=== PATIENT | male | born 1975 | race Caucasian/White ===

== ENCOUNTER 2022-07-19 15:38 | Inpatient (IN) | payer OTHER ==
[2022-07-19 17:29] VITALS: BMI 23.3
[2022-07-19] MEDS ORDERED: IBUPROFEN 400 MG TABLET (FP) PO PRN (18:03)
[2022-07-19] MEDS ORDERED: DICYCLOMINE HCL 10 MG CAPSULE PO PRN (18:03)
[2022-07-19] MEDS ORDERED: IBUPROFEN 600 MG TABLET (FP) PO PRN (18:03)
[2022-07-19] MEDS ORDERED: P-EPHED 60MG/TRIPROLIDI 2.5MG TABLET PO PRN (18:03)
[2022-07-19] MEDS ORDERED: BISMUTH SUBSALICYLATE 524 MG/30 ML PO PRN (18:03)
[2022-07-19] MEDS ORDERED: MAGNESIUM HYDROX 2400MG/30ML ORAL SUSPENSION 30 ML CUP PO PRN (18:03)
[2022-07-19] MEDS ORDERED: MAG HYDROX/AL HYDROX/SIMETH 30 ML UNIT-DOSE CUP PO PRN (18:03)
[2022-07-19] MEDS ORDERED: LOPERAMIDE HCL 2 MG CAPSULE PO PRN (18:03)
[2022-07-19] MEDS ORDERED: guaiFENesin 200 MG/10 ML 10 ML UNIT-DOSE CUPS PO PRN (18:03)
[2022-07-19] MEDS ORDERED: MAGNESIUM CITRATE 300 ML BOTTLE PO PRN (18:03)
[2022-07-19] MEDS ORDERED: BENZOCAINE/MENTHOL (CHLORASEPTIC ) LOZENGE MM PRN (18:03)
[2022-07-19] MEDS ORDERED: NALOXONE HCL 0.4 MG/ML VIAL IM PRN (18:03)
[2022-07-19] MEDS ORDERED: NALOXONE HCL (KLOXXADO) 8 MG SPRAY NS PRN (18:03)
[2022-07-19] MEDS ORDERED: ACETAMINOPHEN 325 MG TABLET (FP) PO PRN ×2 (18:03)
[2022-07-19] MEDS ORDERED: MELATONIN 5 MG TABLETS PO PRN (18:03)
[2022-07-19] MEDS ORDERED: NICOTINE POLACRILEX 2 MG GUM BUC PRN (18:03)
[2022-07-19] MEDS ORDERED: ONDANSETRON *ODT* 4 MG TABLET SL PRN (18:03)
[2022-07-19] MEDS ORDERED: cloNIDine HCL 0.1 MG TABLET PO PRN (18:40)
[2022-07-19] MEDS ORDERED: methaDONE HCL 10 MG TABLET (FOR DETOX USE ONLY) PO ONE (19:20)
[2022-07-19] MEDS ORDERED: THIAMINE HCL 100 MG TABLET (FP) PO SCH (22:00)
[2022-07-19] MEDS: hydrOXYzine PAMOATE 25 MG CAPSULE (FP) PO PRN (22:30)
[2022-07-19] MEDS: METHOCARBAMOL 500 MG TABLET PO PRN (22:30)
[2022-07-20] MEDS: METHOCARBAMOL 500 MG TABLET PO PRN (06:27)
[2022-07-20 09:35] VITALS: BP 122/71; PULSE 78; RESP 16; TEMP 97.3
[2022-07-20] MEDS ORDERED: PRENATAL VITAMINS W/ FOLIC ACID TABLET (FP) PO SCH (10:00)
[2022-07-20] MEDS ORDERED: NICOTINE 14 MG/24 HOURS TOPICAL PATCH TD SCH (10:00)
[2022-07-20] MEDS: hydrOXYzine PAMOATE 25 MG CAPSULE (FP) PO PRN (10:38)
[2022-07-20] MEDS ORDERED: FLU VACC QS2022-23(6MOS UP)/PF 60 MCG/0.5 ML SYRINGE IM ONE (12:00)
[2022-07-20 13:45] LABS: HEMATOCRIT 45.4 % (35.4-49); HEMOGLOBIN 14.8 GM/dL (11.7-16.9); MCHC 32.6 g/dl (32.0-35.9); MEAN CELL VOLUME 98.1 fl (80-96); MEAN PLT VOLUME 8.1 fl (7.5-11.1); PLATELET COUNT 295 10^3/uL (134-434); RBC 4.63 M/mm3 (4.00-5.60); WHITE BLOOD COUNT 6.1 K/mm3 (4.0-10.0)
[2022-07-20 13:58] LABS: ALBUMIN 3.7 g/dl (3.4-5.0); BLOOD UREA NITROGEN 25.3 mg/dL (7-18); CALCIUM 9.2 mg/dL (8.5-10.1)
[2022-07-20 14:03] LABS: BILIRUBIN,TOTAL 0.5 mg/dL (0.2-1); TOT PROT 7.4 g/dl (6.4-8.2)
[2022-07-20 14:44] LABS: HIV INTERPRETATION NEGATIVE (NEGATIVE)
[2022-07-21] MEDS ORDERED: methaDONE HCL 10 MG TABLET (FOR DETOX USE ONLY) PO ONE (10:00)
[2022-07-23] MEDS ORDERED: methaDONE HCL 10 MG TABLET (FOR DETOX USE ONLY) PO ONE (10:00)
== END 2022-07-20 11:25 | disposition left against medical advice (07) | DRG 770 ==
LOC: YASAS 15:38 → Y6N 18:16
PROVIDERS: ADMIT Allergy & Immunology; ATTEND Surgery
PROC: HZ2ZZZZ Detoxification Services for Substance Abuse Treatment (ICD-10-PCS; principal; 2022-07-19)
DX: F11.23 Opioid dependence with withdrawal (principal); F12.20 Cannabis dependence, uncomplicated; F17.210 Nicotine dependence, cigarettes, uncomplicated; F43.10 Post-traumatic stress disorder, unspecified; F90.9 Attention-deficit hyperactivity disorder, unspecified type; M54.50 Low back pain, unspecified; G89.29 Other chronic pain; Z59.00 Homelessness unspecified
CPT/HCPCS: 36415; 80053; 85027; 86780; 87389; C9803-CS; U0003; U0005

== ENCOUNTER 2023-08-17 22:33 | Emergency (ER) | payer SELFPAY ==
[2023-08-17 22:41] VITALS: RESP 18; TEMP 97.8; BMI 26.1
[2023-08-17] MEDS ORDERED: LACTATED RINGERS SOLUTION 1,000 ML/1,000 ML INFUS.BAG IV ONE (23:31)
[2023-08-17] MEDS ORDERED: ONDANSETRON 4 MG/2 ML VIAL IVPUSH ONE (23:32)
[2023-08-17] MEDS ORDERED: FAMOTIDINE 20 MG/50 ML IVPB 20 MG/50 ML MG IVPB ONE ×2 (23:32→23:36)
[2023-08-17] MEDS ORDERED: ACETAMINOPHEN 1000 MG/100 ML BAG IVPB ONE (23:33)
[2023-08-17] MEDS ORDERED: ONDANSETRON 4 MG/2 ML VIAL ONE (23:35)
[2023-08-17] MEDS ORDERED: ACETAMINOPHEN INJECTION 100 ML IVPB ONE (23:35)
[2023-08-18 00:18] LABS: BASO % 0.6 % (0-2.0); EOS % 0.7 % (0-4.5); HEMATOCRIT 39.9 % (35.4-49); HEMOGLOBIN 13.7 GM/dL (11.7-16.9); LYMPH % 13.2 % (8-40); MCHC 34.5 g/dl (32.0-35.9); MEAN CELL VOLUME 92.9 fl (80-96); MEAN PLT VOLUME 8.9 fl (7.5-11.1); MONO % 6.5 % (3.8-10.2); PLATELET COUNT 177 10^3/uL (134-434); RBC 4.29 M/mm3 (4.00-5.60); RDW 13.8 % (11.9-15.9); WHITE BLOOD COUNT 10.8 K/mm3 (4.0-10.0)
[2023-08-18 00:29] LABS: VENOUS BASE EXCESS 2.7 mmol/L (-2-2); VENOUS O2 SATURATION 49.4 % (70-80); VENOUS PCO2 51.3 mmHg (38-52); VENOUS PH 7.37 (7.310-7.410)
[2023-08-18 00:36] LABS: CHLORIDE 97 mmol/L (98-107); POTASSIUM 4.1 mmol/L (3.5-5.1); SODIUM 134 mmol/L (136-145)
[2023-08-18 00:39] LABS: CALCIUM 8.5 mg/dL (8.5-10.1); LIPASE 72 U/L (73-393); MAGNESIUM 2.2 mg/dL (1.8-2.4)
[2023-08-18 00:40] LABS: ALBUMIN 3.7 g/dl (3.4-5.0); ANION GAP 8 mmol/L (4-13); BLOOD UREA NITROGEN 23.1 mg/dL (7-18); CO2 28 mmol/L (21-32); GLUCOSE,RANDOM 94 mg/dL (74-106)
[2023-08-18 00:42] LABS: CREATININE 0.8 mg/dL (0.55-1.3); SGOT/AST 23 U/L (15-37); SGPT/ALT 20 U/L (13-61)
[2023-08-18 00:43] LABS: PHOSPHOROUS 3.8 mg/dL (2.5-4.9)
[2023-08-18 00:44] LABS: TOT PROT 7.2 g/dl (6.4-8.2)
[2023-08-18 00:45] LABS: BILIRUBIN,TOTAL 0.5 mg/dL (0.2-1)
[2023-08-18 00:46] LABS: ALK PHOS 67 U/L (45-117)
[2023-08-18] MEDS ORDERED: SODIUM CHLORIDE 0.9% 500 ML INFUS.BAG IV ONE (01:47)
[2023-08-18] MEDS ORDERED: KETOROLAC TROMETHAMINE 15 MG/ML VIAL IVPUSH ONE (01:47)
[2023-08-18] MEDS ORDERED: KETOROLAC TROMETHAMINE 15 MG/ML VIAL ONE (01:52)
[2023-08-18 06:40] VITALS: BP 138/78; PULSE 78
== END 2023-08-18 06:40 | disposition home or self-care (01) ==
LOC: JER 22:33
PROC: 3E033GC Introduction of Other Therapeutic Substance into Peripheral Vein, Percutaneous Approach (ICD-10-PCS; principal; 2023-08-18)
PROC: 3E033GC Introduction of Other Therapeutic Substance into Peripheral Vein, Percutaneous Approach (ICD-10-PCS; 2023-08-18)
PROC: 3E033NZ Introduction of Analgesics, Hypnotics, Sedatives into Peripheral Vein, Percutaneous Approach (ICD-10-PCS; 2023-08-18)
PROC: 3E0333Z Introduction of Anti-inflammatory into Peripheral Vein, Percutaneous Approach (ICD-10-PCS; 2023-08-18)
DX: R11.2 Nausea with vomiting, unspecified (principal); R51.9 Headache, unspecified; M54.9 Dorsalgia, unspecified; R20.2 Paresthesia of skin; M79.606 Pain in leg, unspecified; Z20.822 Contact with and (suspected) exposure to COVID-19
CPT/HCPCS: 0241U-QW; 36415; 71045-TC-FY; 76705-TC; 80053; 80307; 82550; 82553; 82803; 82962; 83690; 83735; 84100; 85025; 93005; 93010; 99285-25

== ENCOUNTER 2023-08-21 12:05 | Inpatient (IN) | payer OTHER ==
[2023-08-21 12:41] VITALS: BMI 25.8
[2023-08-21] MEDS ORDERED: ACETAMINOPHEN 325 MG TABLET (FP) PO PRN (13:56)
[2023-08-21] MEDS ORDERED: BENZONATATE 200 MG CAPSULE PO PRN (13:56)
[2023-08-21] MEDS ORDERED: MAGNESIUM HYDROX 2400MG/30ML ORAL SUSPENSION 30 ML CUP PO PRN (13:56)
[2023-08-21] MEDS ORDERED: NALOXONE HCL (KLOXXADO) 8 MG SPRAY NS PRN (13:56)
[2023-08-21] MEDS ORDERED: NALOXONE HCL 0.4 MG/ML VIAL IM PRN (13:56)
[2023-08-21] MEDS ORDERED: POLYETHYLENE GLYCOL (HEALTHYLAX) 3350 17 GM PACKET PO PRN (13:56)
[2023-08-21] MEDS ORDERED: IBUPROFEN 400 MG TABLET (FP) PO PRN (13:56)
[2023-08-21] MEDS ORDERED: guaiFENesin 600 MG TABLET.ER (FP) PO PRN (13:56)
[2023-08-21] MEDS ORDERED: LOPERAMIDE HCL 2 MG CAPSULE PO PRN (13:56)
[2023-08-21] MEDS ORDERED: hydrOXYzine PAMOATE 25 MG CAPSULE (FP) PO PRN (13:56)
[2023-08-21] MEDS ORDERED: IBUPROFEN 600 MG TABLET (FP) PO ONE (15:11)
[2023-08-21] MEDS ORDERED: PRENATAL VITAMINS W/ FOLIC ACID TABLET (FP) PO ONE (15:11)
[2023-08-21] MEDS: IBUPROFEN 600 MG TABLET (FP) PO PRN ×2 (15:13→22:06)
[2023-08-21] MEDS: PRENATAL VITAMINS W/ FOLIC ACID TABLET (FP) PO SCH (15:15)
[2023-08-21] MEDS: NICOTINE 21 MG/24 HOURS TOPICAL PATCH TD SCH (15:15)
[2023-08-21] MEDS: COLLOIDAL OATMEAL 1 BAR EACH TP PRN (20:34)
[2023-08-21] MEDS: THIAMINE HCL 100 MG TABLET (FP) PO SCH (22:04)
[2023-08-21] MEDS: MELATONIN 5 MG TABLETS PO SCH (22:04)
[2023-08-22] MEDS: MAG HYDROX/AL HYDROX/SIMETH 30 ML UNIT-DOSE CUP PO PRN (06:13)
[2023-08-22] MEDS: IBUPROFEN 600 MG TABLET (FP) PO PRN (08:40)
[2023-08-22] MEDS: PRENATAL VITAMINS W/ FOLIC ACID TABLET (FP) PO SCH (09:57)
[2023-08-22] MEDS: NICOTINE 21 MG/24 HOURS TOPICAL PATCH TD SCH (09:57)
[2023-08-22 10:45] LABS: POTASSIUM 4.1 mmol/L (3.5-5.1)
[2023-08-22 10:46] LABS: HEMATOCRIT 41.5 % (35.4-49); MCH 31.4 pg (25.7-33.7); MCHC 33.7 g/dl (32.0-35.9); MEAN CELL VOLUME 93.3 fl (80-96); MEAN PLT VOLUME 8.6 fl (7.5-11.1); PLATELET COUNT 227 10^3/uL (134-434); RBC 4.45 M/mm3 (4.00-5.60); RDW 14.3 % (11.9-15.9); WHITE BLOOD COUNT 6.6 K/mm3 (4.0-10.0)
[2023-08-22 10:50] LABS: CALCIUM 8.7 mg/dL (8.5-10.1)
[2023-08-22 10:51] LABS: ALBUMIN 3.7 g/dl (3.4-5.0); BLOOD UREA NITROGEN 22.3 mg/dL (7-18)
[2023-08-22 10:52] LABS: CREATININE 1.1 mg/dL (0.55-1.3)
[2023-08-22 10:53] LABS: BILIRUBIN,TOTAL 0.6 mg/dL (0.2-1); TOT PROT 7.1 g/dl (6.4-8.2)
[2023-08-22 11:13] LABS: SYPHILIS W/ RPR CONF NON-REACTIVE (NONREACTIVE)
[2023-08-22] MEDS: DIVALPROEX SODIUM 500 MG TABLET E.C. PO SCH ×2 (13:41→21:33)
[2023-08-22] MEDS: THIAMINE HCL 100 MG TABLET (FP) PO SCH (21:33)
[2023-08-22] MEDS: MELATONIN 5 MG TABLETS PO SCH (21:33)
[2023-08-22] MEDS: traZODone HCL 50 MG TABLET (FP) PO SCH (21:33)
[2023-08-22] MEDS ORDERED: traZODone HCL 100 MG TABLET (FP) PO SCH (22:00)
[2023-08-23] MEDS: PRENATAL VITAMINS W/ FOLIC ACID TABLET (FP) PO SCH (09:56)
[2023-08-23] MEDS: NICOTINE 21 MG/24 HOURS TOPICAL PATCH TD SCH (09:56)
[2023-08-23] MEDS: DIVALPROEX SODIUM 500 MG TABLET E.C. PO SCH ×2 (09:56→21:06)
[2023-08-23] MEDS: hydrOXYzine PAMOATE 50 MG CAPSULE (FP) PO PRN (12:06)
[2023-08-23 13:41] LABS: PH,URINE 5.5 (5.0-8.0); URINE APPEARANCE CLEAR; URINE BILIRUBIN NEGATIVE (NEGATIVE); URINE COLOR YELLOW; URINE GLUCOSE (UA) NEGATIVE (NEGATIVE); URINE KETONE NEGATIVE (NEGATIVE); URINE LEUK ESTERASE NEGATIVE (NEGATIVE); URINE NITRITE NEGATIVE (NEGATIVE); URINE PROTEIN NEGATIVE (NEGATIVE); URINE UROBILINOGEN 0.2 mg/dL (0.2-1.0)
[2023-08-23] MEDS: traZODone HCL 50 MG TABLET (FP) PO SCH (21:06)
[2023-08-23] MEDS: THIAMINE HCL 100 MG TABLET (FP) PO SCH (21:06)
[2023-08-23] MEDS: MELATONIN 5 MG TABLETS PO SCH (21:07)
[2023-08-24] MEDS: hydrOXYzine PAMOATE 50 MG CAPSULE (FP) PO PRN (02:35)
[2023-08-24] MEDS: PRENATAL VITAMINS W/ FOLIC ACID TABLET (FP) PO SCH (10:04)
[2023-08-24] MEDS: DIVALPROEX SODIUM 500 MG TABLET E.C. PO SCH ×2 (10:04→21:22)
[2023-08-24] MEDS: NICOTINE 21 MG/24 HOURS TOPICAL PATCH TD SCH (10:05)
[2023-08-24] MEDS: cloNIDine HCL 0.1 MG TABLET PO PRN (10:07)
[2023-08-24] MEDS: PANTOPRAZOLE 40 MG TABLET PO SCH (15:41)
[2023-08-24] MEDS: LIDOCAINE 4% PATCH TP SCH (15:42)
[2023-08-24] MEDS: MELATONIN 5 MG TABLETS PO SCH (21:21)
[2023-08-24] MEDS: traZODone HCL 50 MG TABLET (FP) PO SCH (21:22)
[2023-08-24] MEDS: THIAMINE HCL 100 MG TABLET (FP) PO SCH (21:22)
[2023-08-24] MEDS: ACETAMINOPHEN 325 MG TABLET (FP) PO PRN (21:23)
[2023-08-24] MEDS: METHYL SALICYLATE/MENTHOL OINT 30 GM TUBE TP SCH (21:25)
[2023-08-24] MEDS: LIDOCAINE PATCH REMOVAL MC SCH (21:33)
[2023-08-25] MEDS: PRENATAL VITAMINS W/ FOLIC ACID TABLET (FP) PO SCH (10:21)
[2023-08-25] MEDS: LIDOCAINE 4% PATCH TP SCH (10:21)
[2023-08-25] MEDS: NICOTINE 21 MG/24 HOURS TOPICAL PATCH TD SCH (10:22)
[2023-08-25] MEDS: PANTOPRAZOLE 40 MG TABLET PO SCH (10:22)
[2023-08-25] MEDS: DIVALPROEX SODIUM 500 MG TABLET E.C. PO SCH ×2 (10:22→21:25)
[2023-08-25] MEDS: ACETAMINOPHEN 325 MG TABLET (FP) PO PRN ×3 (10:22→21:23)
[2023-08-25] MEDS: METHYL SALICYLATE/MENTHOL OINT 30 GM TUBE TP SCH ×2 (10:23→21:25)
[2023-08-25] MEDS: traZODone HCL 50 MG TABLET (FP) PO SCH (21:25)
[2023-08-25] MEDS: THIAMINE HCL 100 MG TABLET (FP) PO SCH (21:25)
[2023-08-25] MEDS: LIDOCAINE PATCH REMOVAL MC SCH (21:25)
[2023-08-25] MEDS: MELATONIN 5 MG TABLETS PO SCH (21:26)
[2023-08-26] MEDS: hydrOXYzine PAMOATE 50 MG CAPSULE (FP) PO PRN (03:42)
[2023-08-26] MEDS: PRENATAL VITAMINS W/ FOLIC ACID TABLET (FP) PO SCH (09:54)
[2023-08-26] MEDS: NICOTINE 21 MG/24 HOURS TOPICAL PATCH TD SCH (09:55)
[2023-08-26] MEDS: LIDOCAINE 4% PATCH TP SCH (09:56)
[2023-08-26] MEDS: METHYL SALICYLATE/MENTHOL OINT 30 GM TUBE TP SCH ×2 (09:56→21:06)
[2023-08-26] MEDS: ACETAMINOPHEN 325 MG TABLET (FP) PO PRN ×2 (09:58→21:08)
[2023-08-26] MEDS: DIVALPROEX SODIUM 500 MG TABLET E.C. PO SCH ×2 (09:58→21:07)
[2023-08-26] MEDS: PANTOPRAZOLE 40 MG TABLET PO SCH (10:19)
[2023-08-26] MEDS: THIAMINE HCL 100 MG TABLET (FP) PO SCH (21:07)
[2023-08-26] MEDS: MELATONIN 5 MG TABLETS PO SCH (21:07)
[2023-08-26] MEDS: LIDOCAINE PATCH REMOVAL MC SCH (21:07)
[2023-08-26] MEDS: traZODone HCL 50 MG TABLET (FP) PO SCH (21:07)
[2023-08-27] MEDS: PRENATAL VITAMINS W/ FOLIC ACID TABLET (FP) PO SCH (09:57)
[2023-08-27] MEDS: METHYL SALICYLATE/MENTHOL OINT 30 GM TUBE TP SCH ×2 (09:57→21:32)
[2023-08-27] MEDS: DIVALPROEX SODIUM 500 MG TABLET E.C. PO SCH ×2 (09:57→21:32)
[2023-08-27] MEDS: PANTOPRAZOLE 40 MG TABLET PO SCH (09:57)
[2023-08-27] MEDS: NICOTINE 21 MG/24 HOURS TOPICAL PATCH TD SCH (09:57)
[2023-08-27] MEDS: LIDOCAINE 4% PATCH TP SCH (09:58)
[2023-08-27] MEDS: ACETAMINOPHEN 325 MG TABLET (FP) PO PRN (16:42)
[2023-08-27] MEDS: hydrOXYzine PAMOATE 50 MG CAPSULE (FP) PO PRN (18:49)
[2023-08-27] MEDS: COLLOIDAL OATMEAL 1 BAR EACH TP PRN (19:14)
[2023-08-27] MEDS: traZODone HCL 50 MG TABLET (FP) PO SCH (21:32)
[2023-08-27] MEDS: MELATONIN 5 MG TABLETS PO SCH (21:34)
[2023-08-27] MEDS: LIDOCAINE PATCH REMOVAL MC SCH (21:34)
[2023-08-27] MEDS: THIAMINE HCL 100 MG TABLET (FP) PO SCH (21:34)
[2023-08-28] MEDS: PRENATAL VITAMINS W/ FOLIC ACID TABLET (FP) PO SCH (09:46)
[2023-08-28] MEDS: DIVALPROEX SODIUM 500 MG TABLET E.C. PO SCH ×2 (09:47→21:23)
[2023-08-28] MEDS: METHYL SALICYLATE/MENTHOL OINT 30 GM TUBE TP SCH ×2 (09:47→21:24)
[2023-08-28] MEDS: PANTOPRAZOLE 40 MG TABLET PO SCH (09:47)
[2023-08-28] MEDS: LIDOCAINE 4% PATCH TP SCH (09:48)
[2023-08-28] MEDS: NICOTINE 21 MG/24 HOURS TOPICAL PATCH TD SCH (09:48)
[2023-08-28] MEDS ORDERED: BENZOYL PEROXIDE 5% 60 GM GEL..GRAM. TP ONE (15:11)
[2023-08-28] MEDS: THIAMINE HCL 100 MG TABLET (FP) PO SCH (21:23)
[2023-08-28] MEDS: traZODone HCL 50 MG TABLET (FP) PO SCH (21:23)
[2023-08-28] MEDS: LIDOCAINE PATCH REMOVAL MC SCH (21:24)
[2023-08-28] MEDS: MELATONIN 5 MG TABLETS PO SCH (21:24)
[2023-08-28] MEDS: ACETAMINOPHEN 325 MG TABLET (FP) PO PRN (21:24)
[2023-08-29] MEDS: PRENATAL VITAMINS W/ FOLIC ACID TABLET (FP) PO SCH (09:40)
[2023-08-29] MEDS: NICOTINE 21 MG/24 HOURS TOPICAL PATCH TD SCH (09:41)
[2023-08-29] MEDS: PANTOPRAZOLE 40 MG TABLET PO SCH (09:41)
[2023-08-29] MEDS: METHYL SALICYLATE/MENTHOL OINT 30 GM TUBE TP SCH ×2 (09:41→21:20)
[2023-08-29] MEDS: DIVALPROEX SODIUM 500 MG TABLET E.C. PO SCH ×2 (09:41→21:19)
[2023-08-29] MEDS: LIDOCAINE 4% PATCH TP SCH (09:41)
[2023-08-29] MEDS ORDERED: BENZOYL PEROXIDE 5% 60 GM GEL..GRAM. TP ONE ×2 (09:58)
[2023-08-29] MEDS: ACETAMINOPHEN 325 MG TABLET (FP) PO PRN (15:14)
[2023-08-29] MEDS: THIAMINE HCL 100 MG TABLET (FP) PO SCH (21:19)
[2023-08-29] MEDS: cloNIDine HCL 0.1 MG TABLET PO PRN (21:19)
[2023-08-29] MEDS: MELATONIN 5 MG TABLETS PO SCH (21:19)
[2023-08-29] MEDS: traZODone HCL 50 MG TABLET (FP) PO SCH (21:19)
[2023-08-29] MEDS: LIDOCAINE PATCH REMOVAL MC SCH (21:20)
[2023-08-30] MEDS: ACETAMINOPHEN 325 MG TABLET (FP) PO PRN ×2 (07:20→21:10)
[2023-08-30] MEDS: PRENATAL VITAMINS W/ FOLIC ACID TABLET (FP) PO SCH (09:52)
[2023-08-30] MEDS: DIVALPROEX SODIUM 500 MG TABLET E.C. PO SCH ×2 (09:52→21:08)
[2023-08-30] MEDS: PANTOPRAZOLE 40 MG TABLET PO SCH (09:52)
[2023-08-30] MEDS: METHYL SALICYLATE/MENTHOL OINT 30 GM TUBE TP SCH ×2 (09:53→21:09)
[2023-08-30] MEDS: NICOTINE 21 MG/24 HOURS TOPICAL PATCH TD SCH (09:53)
[2023-08-30] MEDS: LIDOCAINE 4% PATCH TP SCH (09:53)
[2023-08-30] MEDS: BENZOCAINE/MENTHOL (CHLORASEPTIC ) LOZENGE MM PRN (20:58)
[2023-08-30] MEDS: traZODone HCL 50 MG TABLET (FP) PO SCH (21:08)
[2023-08-30] MEDS: THIAMINE HCL 100 MG TABLET (FP) PO SCH (21:08)
[2023-08-30] MEDS: LIDOCAINE PATCH REMOVAL MC SCH (21:09)
[2023-08-30] MEDS: MELATONIN 5 MG TABLETS PO SCH (21:09)
[2023-08-31] MEDS: PANTOPRAZOLE 40 MG TABLET PO SCH (09:52)
[2023-08-31] MEDS: LIDOCAINE 4% PATCH TP SCH (09:52)
[2023-08-31] MEDS: DIVALPROEX SODIUM 500 MG TABLET E.C. PO SCH ×2 (09:52→21:19)
[2023-08-31] MEDS: PRENATAL VITAMINS W/ FOLIC ACID TABLET (FP) PO SCH (09:52)
[2023-08-31] MEDS: NICOTINE 21 MG/24 HOURS TOPICAL PATCH TD SCH (09:52)
[2023-08-31] MEDS: METHYL SALICYLATE/MENTHOL OINT 30 GM TUBE TP SCH ×2 (09:52→21:23)
[2023-08-31] MEDS: QUEtiapine FUMARATE 25 MG TABLET PO PRN ×2 (09:54→21:19)
[2023-08-31] MEDS: BENZOCAINE/MENTHOL (CHLORASEPTIC ) LOZENGE MM PRN (19:31)
[2023-08-31] MEDS: traZODone HCL 50 MG TABLET (FP) PO SCH (21:19)
[2023-08-31] MEDS: THIAMINE HCL 100 MG TABLET (FP) PO SCH (21:19)
[2023-08-31] MEDS: ACETAMINOPHEN 325 MG TABLET (FP) PO PRN (21:21)
[2023-08-31] MEDS: MELATONIN 5 MG TABLETS PO SCH (21:21)
[2023-08-31] MEDS: LIDOCAINE PATCH REMOVAL MC SCH (21:23)
[2023-09-01] MEDS: PRENATAL VITAMINS W/ FOLIC ACID TABLET (FP) PO SCH (09:38)
[2023-09-01] MEDS: METHYL SALICYLATE/MENTHOL OINT 30 GM TUBE TP SCH ×2 (09:39→21:20)
[2023-09-01] MEDS: LIDOCAINE 4% PATCH TP SCH (09:39)
[2023-09-01] MEDS: PANTOPRAZOLE 40 MG TABLET PO SCH (09:39)
[2023-09-01] MEDS: DIVALPROEX SODIUM 500 MG TABLET E.C. PO SCH ×2 (09:39→21:19)
[2023-09-01] MEDS: NICOTINE 21 MG/24 HOURS TOPICAL PATCH TD SCH (09:39)
[2023-09-01] MEDS: BENZOCAINE/MENTHOL (CHLORASEPTIC ) LOZENGE MM PRN (13:27)
[2023-09-01] MEDS: ACETAMINOPHEN 325 MG TABLET (FP) PO PRN (21:19)
[2023-09-01] MEDS: QUEtiapine FUMARATE 25 MG TABLET PO PRN (21:19)
[2023-09-01] MEDS: traZODone HCL 50 MG TABLET (FP) PO SCH (21:20)
[2023-09-01] MEDS: LIDOCAINE PATCH REMOVAL MC SCH (21:20)
[2023-09-01] MEDS: MELATONIN 5 MG TABLETS PO SCH (21:20)
[2023-09-01] MEDS: THIAMINE HCL 100 MG TABLET (FP) PO SCH (21:20)
[2023-09-02] MEDS: PANTOPRAZOLE 40 MG TABLET PO SCH (10:02)
[2023-09-02] MEDS: DIVALPROEX SODIUM 500 MG TABLET E.C. PO SCH ×2 (10:02→21:19)
[2023-09-02] MEDS: PRENATAL VITAMINS W/ FOLIC ACID TABLET (FP) PO SCH (10:02)
[2023-09-02] MEDS: LIDOCAINE 4% PATCH TP SCH (10:03)
[2023-09-02] MEDS: NICOTINE 21 MG/24 HOURS TOPICAL PATCH TD SCH (10:03)
[2023-09-02] MEDS: METHYL SALICYLATE/MENTHOL OINT 30 GM TUBE TP SCH ×2 (10:03→21:18)
[2023-09-02] MEDS: MAG HYDROX/AL HYDROX/SIMETH 30 ML UNIT-DOSE CUP PO PRN (10:32)
[2023-09-02] MEDS: traZODone HCL 50 MG TABLET (FP) PO SCH (21:19)
[2023-09-02] MEDS: THIAMINE HCL 100 MG TABLET (FP) PO SCH (21:19)
[2023-09-02] MEDS: LIDOCAINE PATCH REMOVAL MC SCH (21:19)
[2023-09-02] MEDS: QUEtiapine FUMARATE 25 MG TABLET PO PRN (21:19)
[2023-09-02] MEDS: hydrOXYzine PAMOATE 50 MG CAPSULE (FP) PO PRN (21:19)
[2023-09-02] MEDS: MELATONIN 5 MG TABLETS PO SCH (21:19)
[2023-09-02] MEDS: ACETAMINOPHEN 325 MG TABLET (FP) PO PRN (21:20)
[2023-09-03] MEDS: NICOTINE 21 MG/24 HOURS TOPICAL PATCH TD SCH (10:00)
[2023-09-03] MEDS: PRENATAL VITAMINS W/ FOLIC ACID TABLET (FP) PO SCH (10:00)
[2023-09-03] MEDS: LIDOCAINE 4% PATCH TP SCH (10:01)
[2023-09-03] MEDS: METHYL SALICYLATE/MENTHOL OINT 30 GM TUBE TP SCH ×2 (10:01→21:26)
[2023-09-03] MEDS: PANTOPRAZOLE 40 MG TABLET PO SCH (10:01)
[2023-09-03] MEDS: DIVALPROEX SODIUM 500 MG TABLET E.C. PO SCH ×2 (10:02→21:26)
[2023-09-03] MEDS: BENZOCAINE/MENTHOL (CHLORASEPTIC ) LOZENGE MM PRN (12:41)
[2023-09-03] MEDS: ACETAMINOPHEN 325 MG TABLET (FP) PO PRN (21:25)
[2023-09-03] MEDS: hydrOXYzine PAMOATE 50 MG CAPSULE (FP) PO PRN (21:25)
[2023-09-03] MEDS: MELATONIN 5 MG TABLETS PO SCH (21:26)
[2023-09-03] MEDS: traZODone HCL 50 MG TABLET (FP) PO SCH (21:26)
[2023-09-03] MEDS: LIDOCAINE PATCH REMOVAL MC SCH (21:26)
[2023-09-03] MEDS: QUEtiapine FUMARATE 25 MG TABLET PO PRN (21:26)
[2023-09-03] MEDS: THIAMINE HCL 100 MG TABLET (FP) PO SCH (21:26)
[2023-09-04] MEDS: PANTOPRAZOLE 40 MG TABLET PO SCH (09:25)
[2023-09-04] MEDS: PRENATAL VITAMINS W/ FOLIC ACID TABLET (FP) PO SCH (09:25)
[2023-09-04] MEDS: METHYL SALICYLATE/MENTHOL OINT 30 GM TUBE TP SCH ×2 (09:25→21:22)
[2023-09-04] MEDS: LIDOCAINE 4% PATCH TP SCH (09:25)
[2023-09-04] MEDS: DIVALPROEX SODIUM 500 MG TABLET E.C. PO SCH ×2 (09:25→21:22)
[2023-09-04] MEDS: NICOTINE 21 MG/24 HOURS TOPICAL PATCH TD SCH (09:25)
[2023-09-04] MEDS: BENZOCAINE/MENTHOL (CHLORASEPTIC ) LOZENGE MM PRN (15:54)
[2023-09-04] MEDS: THIAMINE HCL 100 MG TABLET (FP) PO SCH (21:22)
[2023-09-04] MEDS: QUEtiapine FUMARATE 25 MG TABLET PO PRN (21:23)
[2023-09-04] MEDS: LIDOCAINE PATCH REMOVAL MC SCH (21:23)
[2023-09-04] MEDS: traZODone HCL 50 MG TABLET (FP) PO SCH (21:23)
[2023-09-04] MEDS: hydrOXYzine PAMOATE 50 MG CAPSULE (FP) PO PRN (21:23)
[2023-09-04] MEDS: MELATONIN 5 MG TABLETS PO SCH (21:23)
[2023-09-04] MEDS: ACETAMINOPHEN 325 MG TABLET (FP) PO PRN (21:24)
[2023-09-05] MEDS: DIVALPROEX SODIUM 500 MG TABLET E.C. PO SCH ×2 (09:40→21:23)
[2023-09-05] MEDS: PANTOPRAZOLE 40 MG TABLET PO SCH (09:40)
[2023-09-05] MEDS: LIDOCAINE 4% PATCH TP SCH (09:40)
[2023-09-05] MEDS: PRENATAL VITAMINS W/ FOLIC ACID TABLET (FP) PO SCH (09:40)
[2023-09-05] MEDS: METHYL SALICYLATE/MENTHOL OINT 30 GM TUBE TP SCH ×2 (09:40→21:48)
[2023-09-05] MEDS: NICOTINE 21 MG/24 HOURS TOPICAL PATCH TD SCH (09:41)
[2023-09-05] MEDS: SIMETHICONE 80 MG TAB.CHEW (FP) PO PRN (09:42)
[2023-09-05] MEDS: traZODone HCL 50 MG TABLET (FP) PO SCH (21:23)
[2023-09-05] MEDS: ACETAMINOPHEN 325 MG TABLET (FP) PO PRN (21:23)
[2023-09-05] MEDS: QUEtiapine FUMARATE 25 MG TABLET PO PRN (21:23)
[2023-09-05] MEDS: THIAMINE HCL 100 MG TABLET (FP) PO SCH (21:23)
[2023-09-05] MEDS: MELATONIN 5 MG TABLETS PO SCH (21:23)
[2023-09-05] MEDS: LIDOCAINE PATCH REMOVAL MC SCH (21:48)
[2023-09-06] MEDS: ACETAMINOPHEN 325 MG TABLET (FP) PO PRN (07:18)
[2023-09-06] MEDS: PANTOPRAZOLE 40 MG TABLET PO SCH (09:41)
[2023-09-06] MEDS: DIVALPROEX SODIUM 500 MG TABLET E.C. PO SCH ×2 (09:41→21:12)
[2023-09-06] MEDS: PRENATAL VITAMINS W/ FOLIC ACID TABLET (FP) PO SCH (09:41)
[2023-09-06] MEDS: METHYL SALICYLATE/MENTHOL OINT 30 GM TUBE TP SCH ×2 (09:41→21:39)
[2023-09-06] MEDS: LIDOCAINE 4% PATCH TP SCH (09:41)
[2023-09-06] MEDS: SIMETHICONE 80 MG TAB.CHEW (FP) PO PRN (09:42)
[2023-09-06] MEDS: NICOTINE 21 MG/24 HOURS TOPICAL PATCH TD SCH (09:42)
[2023-09-06] MEDS: traZODone HCL 50 MG TABLET (FP) PO SCH (21:12)
[2023-09-06] MEDS: QUEtiapine FUMARATE 25 MG TABLET PO PRN (21:12)
[2023-09-06] MEDS: MELATONIN 5 MG TABLETS PO SCH (21:12)
[2023-09-06] MEDS: IBUPROFEN 600 MG TABLET (FP) PO PRN (21:13)
[2023-09-06] MEDS: THIAMINE HCL 100 MG TABLET (FP) PO SCH (21:13)
[2023-09-06] MEDS: hydrOXYzine PAMOATE 50 MG CAPSULE (FP) PO PRN (21:15)
[2023-09-06] MEDS: LIDOCAINE PATCH REMOVAL MC SCH (21:45)
[2023-09-07] MEDS: PANTOPRAZOLE 40 MG TABLET PO SCH (09:57)
[2023-09-07] MEDS: DIVALPROEX SODIUM 500 MG TABLET E.C. PO SCH ×2 (09:57→21:25)
[2023-09-07] MEDS: PRENATAL VITAMINS W/ FOLIC ACID TABLET (FP) PO SCH (09:57)
[2023-09-07] MEDS: METHYL SALICYLATE/MENTHOL OINT 30 GM TUBE TP SCH ×2 (09:59→21:26)
[2023-09-07] MEDS: NICOTINE 21 MG/24 HOURS TOPICAL PATCH TD SCH (09:59)
[2023-09-07] MEDS: BENZOCAINE/MENTHOL (CHLORASEPTIC ) LOZENGE MM PRN (09:59)
[2023-09-07] MEDS: LIDOCAINE 4% PATCH TP SCH (09:59)
[2023-09-07 20:21] LABS: HIV INTERPRETATION NEGATIVE (NEGATIVE)
[2023-09-07] MEDS: THIAMINE HCL 100 MG TABLET (FP) PO SCH (21:25)
[2023-09-07] MEDS: hydrOXYzine PAMOATE 50 MG CAPSULE (FP) PO PRN (21:25)
[2023-09-07] MEDS: traZODone HCL 50 MG TABLET (FP) PO SCH (21:25)
[2023-09-07] MEDS: MELATONIN 5 MG TABLETS PO SCH (21:25)
[2023-09-07] MEDS: QUEtiapine FUMARATE 25 MG TABLET PO PRN (21:25)
[2023-09-07] MEDS: ACETAMINOPHEN 325 MG TABLET (FP) PO PRN (21:26)
[2023-09-07] MEDS: LIDOCAINE PATCH REMOVAL MC SCH (21:27)
[2023-09-07] MEDS: SIMETHICONE 80 MG TAB.CHEW (FP) PO PRN (21:31)
[2023-09-08 07:05] VITALS: RESP 18
[2023-09-08] MEDS: NICOTINE 21 MG/24 HOURS TOPICAL PATCH TD SCH (09:43)
[2023-09-08] MEDS: PRENATAL VITAMINS W/ FOLIC ACID TABLET (FP) PO SCH (09:43)
[2023-09-08] MEDS: METHYL SALICYLATE/MENTHOL OINT 30 GM TUBE TP SCH ×2 (09:43→21:42)
[2023-09-08] MEDS: PANTOPRAZOLE 40 MG TABLET PO SCH (09:44)
[2023-09-08] MEDS: LIDOCAINE 4% PATCH TP SCH (09:44)
[2023-09-08] MEDS: DIVALPROEX SODIUM 500 MG TABLET E.C. PO SCH ×2 (09:44→21:21)
[2023-09-08] MEDS: BENZOCAINE/MENTHOL (CHLORASEPTIC ) LOZENGE MM PRN (21:20)
[2023-09-08] MEDS: QUEtiapine FUMARATE 25 MG TABLET PO PRN (21:20)
[2023-09-08] MEDS: hydrOXYzine PAMOATE 50 MG CAPSULE (FP) PO PRN (21:21)
[2023-09-08] MEDS: THIAMINE HCL 100 MG TABLET (FP) PO SCH (21:21)
[2023-09-08] MEDS: ACETAMINOPHEN 325 MG TABLET (FP) PO PRN (21:21)
[2023-09-08] MEDS: MELATONIN 5 MG TABLETS PO SCH (21:21)
[2023-09-08] MEDS: traZODone HCL 50 MG TABLET (FP) PO SCH (21:21)
[2023-09-08] MEDS: LIDOCAINE PATCH REMOVAL MC SCH (21:42)
[2023-09-09] MEDS: BENZOCAINE/MENTHOL (CHLORASEPTIC ) LOZENGE MM PRN (08:44)
[2023-09-09] MEDS: PRENATAL VITAMINS W/ FOLIC ACID TABLET (FP) PO SCH (09:50)
[2023-09-09] MEDS: DIVALPROEX SODIUM 500 MG TABLET E.C. PO SCH ×2 (09:51→21:23)
[2023-09-09] MEDS: NICOTINE 21 MG/24 HOURS TOPICAL PATCH TD SCH (09:51)
[2023-09-09] MEDS: METHYL SALICYLATE/MENTHOL OINT 30 GM TUBE TP SCH ×2 (09:51→21:23)
[2023-09-09] MEDS: PANTOPRAZOLE 40 MG TABLET PO SCH (09:51)
[2023-09-09] MEDS: LIDOCAINE 4% PATCH TP SCH (09:51)
[2023-09-09] MEDS: traZODone HCL 50 MG TABLET (FP) PO SCH (21:23)
[2023-09-09] MEDS: THIAMINE HCL 100 MG TABLET (FP) PO SCH (21:23)
[2023-09-09] MEDS: MELATONIN 5 MG TABLETS PO SCH (21:23)
[2023-09-09] MEDS: LIDOCAINE PATCH REMOVAL MC SCH (21:24)
[2023-09-09] MEDS: hydrOXYzine PAMOATE 50 MG CAPSULE (FP) PO PRN (21:25)
[2023-09-09] MEDS: QUEtiapine FUMARATE 25 MG TABLET PO PRN (21:25)
[2023-09-09] MEDS: ACETAMINOPHEN 325 MG TABLET (FP) PO PRN (21:25)
[2023-09-10] MEDS: PANTOPRAZOLE 40 MG TABLET PO SCH (09:39)
[2023-09-10] MEDS: METHYL SALICYLATE/MENTHOL OINT 30 GM TUBE TP SCH ×2 (09:39→21:27)
[2023-09-10] MEDS: NICOTINE 21 MG/24 HOURS TOPICAL PATCH TD SCH (09:39)
[2023-09-10] MEDS: DIVALPROEX SODIUM 500 MG TABLET E.C. PO SCH ×2 (09:39→21:13)
[2023-09-10] MEDS: PRENATAL VITAMINS W/ FOLIC ACID TABLET (FP) PO SCH (09:39)
[2023-09-10] MEDS: LIDOCAINE 4% PATCH TP SCH (09:39)
[2023-09-10] MEDS: ACETAMINOPHEN 325 MG TABLET (FP) PO PRN ×2 (14:43→21:14)
[2023-09-10] MEDS: THIAMINE HCL 100 MG TABLET (FP) PO SCH (21:13)
[2023-09-10] MEDS: traZODone HCL 50 MG TABLET (FP) PO SCH (21:13)
[2023-09-10] MEDS: MELATONIN 5 MG TABLETS PO SCH (21:13)
[2023-09-10] MEDS: hydrOXYzine PAMOATE 50 MG CAPSULE (FP) PO PRN (21:15)
[2023-09-10] MEDS: QUEtiapine FUMARATE 25 MG TABLET PO PRN (21:15)
[2023-09-10] MEDS: LIDOCAINE PATCH REMOVAL MC SCH (22:06)
[2023-09-11 07:04] VITALS: BP 110/68; PULSE 76; TEMP 97.3
[2023-09-11] MEDS: NICOTINE 21 MG/24 HOURS TOPICAL PATCH TD SCH (09:28)
[2023-09-11] MEDS: DIVALPROEX SODIUM 500 MG TABLET E.C. PO SCH (09:28)
[2023-09-11] MEDS: PANTOPRAZOLE 40 MG TABLET PO SCH (09:28)
[2023-09-11] MEDS: PRENATAL VITAMINS W/ FOLIC ACID TABLET (FP) PO SCH (09:28)
[2023-09-11] MEDS: LIDOCAINE 4% PATCH TP SCH (09:29)
[2023-09-11] MEDS: METHYL SALICYLATE/MENTHOL OINT 30 GM TUBE TP SCH (09:29)
== END 2023-09-11 11:26 | disposition home or self-care (01) | DRG 772 ==
LOC: YASAS 12:05 → Y5N 18:27
PROVIDERS: ADMIT Allergy & Immunology; ATTEND Psychiatry & Neurology Pain Medicine
PROC: HZ42ZZZ Group Counseling for Substance Abuse Treatment, Cognitive-Behavioral (ICD-10-PCS; principal; 2023-08-21)
DX: F10.20 Alcohol dependence, uncomplicated (principal); F14.20 Cocaine dependence, uncomplicated; F12.20 Cannabis dependence, uncomplicated; F17.210 Nicotine dependence, cigarettes, uncomplicated; F39 Unspecified mood [affective] disorder; F43.10 Post-traumatic stress disorder, unspecified; F90.9 Attention-deficit hyperactivity disorder, unspecified type; K21.9 Gastro-esophageal reflux disease without esophagitis; L70.9 Acne, unspecified; M24.412 Recurrent dislocation, left shoulder; M54.50 Low back pain, unspecified; G89.29 Other chronic pain; R10.13 Epigastric pain; Z62.810 Personal history of physical and sexual abuse in childhood; Z59.00 Homelessness unspecified
CPT/HCPCS: 36415; 80053; 80164; 80307; 81003; 83036; 85027; 86695; 86696; 86780; 86803; 87389; 87491; 87591; 87635; 87661; 87811; 93005; 93010